=== PATIENT | male | born 1990 | race Caucasian/White ===

== ENCOUNTER 2016-10-09 13:28 | Emergency (ER) | payer SELFPAY ==
[~2016-10-09] VITALS: Ht 175.3 cm; Wt 94.0 kg
[~2016-10-09 13:28] MED LIST: Z.0.NO CURRENT MEDS
[2016-10-09 13:38] VITALS: BP 146/99; PULSE 96; RESP 16; TEMP 97.8; O2SAT 98
[2016-10-09] MEDS ORDERED: IBUP800T23 PO (13:48)
[2016-10-09] MEDS ORDERED: ROBA750T PO (13:48)
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
[2016-10-09] MEDS ORDERED: ORPHENADRINE INJ 60 MG/2 ML AMP IM ONE (14:00)
[2016-10-09] MEDS ORDERED: KETOROLAC TROMETHAMINE 60 MG/2 ML (IM) VIAL IM ONE (14:00)
== END 2016-10-09 14:13 | disposition home or self-care (01) ==
LOC: PHEFT 13:28
DX: S39.012A Strain of muscle, fascia and tendon of lower back, initial encounter (principal); V49.88XA Car occupant (driver) (passenger) injured in other specified transport accidents, initial encounter; Y92.410 Unspecified street and highway as the place of occurrence of the external cause
CPT/HCPCS: 96372; 99283; J1885; J2360